=== PATIENT | female | born 1940 | race Caucasian/White ===

== ENCOUNTER 2021-12-26 11:20 | Inpatient (IN) | payer OTHER, MEDICAID ==
[~2021-12-26] VITALS: Ht 170.2 cm; Wt 126.6 kg
[2021-12-26 11:26] VITALS: BP_SYST 151
[2021-12-26 12:06] LABS: BASOPHILS % (AUTO) 0.7 % (0.0-2.0); EOSINOPHILS # (AUTO) 0.1 K/uL (0.0-0.4); EOSINOPHILS % (AUTO) 0.9 % (0.0-4.0); HEMATOCRIT 42.6 % (36-48); HEMOGLOBIN 14.4 g/dL (12.0-16.0); LYMPHOCYTES # (AUTO) 0.9 K/uL (1.0-5.5); LYMPHOCYTES % (AUTO) 13.7 % (20.5-51.5); MEAN CORPUSCULAR HEMOGLOBIN 32 pg (27-31); MEAN CORPUSCULAR HGB CONC 34 % (32-36); MEAN CORPUSCULAR VOLUME 93 fL (79.0-98.0); MONOCYTES # (AUTO) 0.7 K/uL (0.0-1.0); MONOCYTES % (AUTO) 11.4 % (1.7-9.3); NEUTROPHILS # (AUTO) 4.8 K/uL (1.8-7.7); NEUTROPHILS % (AUTO) 73.3 % (40.0-70.0); PLATELET COUNT (AUTO) 152 K/uL (130-430); RED BLOOD CELL COUNT(AUTO) 4.58 MIL/uL (4.2-6.2); RED CELL DISTRIBUTION WIDTH 15.7 % (9.0-15.0); WHITE BLOOD COUNT (AUTO) 6.5 K/uL (4.8-10.8)
[2021-12-26 12:27] LABS: CHLORIDE 102 mmol/L (98-107); POTASSIUM 3.6 mmol/L (3.5-5.1); SODIUM SERUM 140 mmol/L (136-145)
[2021-12-26 12:37] LABS: ALANINE AMINOTRANSFERASE 15 U/L (12-78); ALBUMIN 2.7 g/dL (3.4-4.8); ANION GAP 5 (5-15); ASPARTATE AMINOTRANSFERASE 22 U/L (10-37); CALCIUM 8.9 mg/dL (8.4-11.0); CREATININE 0.76 mg/dL (0.55-1.30); GLUCOSE 151 mg/dL (70-99); TOTAL BILIRUBIN 0.3 mg/dL (0.0-1.0); UREA NITROGEN, BLOOD 19 mg/dL (8-21)
[2021-12-26] MEDS ORDERED: ACET-73 PO (13:28)
[2021-12-26] MEDS ORDERED: DEPS125 PO (13:28)
[2021-12-26] MEDS ORDERED: LEVE1000 PO (13:28)
[2021-12-26] MEDS ORDERED: SENN8.6T19 PO (13:28)
[2021-12-26] MEDS ORDERED: TOP25 PO (13:28)
[2021-12-26] MEDS ORDERED: FURO-150 PO (13:28)
[2021-12-26] MEDS ORDERED: methylPREDNISolone SOD SUCC/PF 62.5 MG/ML VIAL IVP ONE (13:45)
[2021-12-26] MEDS ORDERED: IPRATROPIUM/ALBUTEROL SULFATE 3 ML AMPUL.NEB (DUONEB) INH ONE (13:45)
[2021-12-26 14:11] LABS: BILIRUBIN,URINE NEGATIVE (NEGATIVE); BLOOD, URINE 3+ (NEGATIVE); CLARITY/URINE CLEAR (CLEAR); COLOR,URINE YELLOW (YELLOW); GLUCOSE,URINE NEGATIVE (NEGATIVE); KETONES,URINE TRACE (NEGATIVE); LEUKOCYTE ESTERASE ,URINE NEGATIVE (NEGATIVE); NITRITE, URINE NEGATIVE (NEGATIVE); PH,URINE 5.5 (5.0-8.0); PROTEIN URINE NEGATIVE (NEGATIVE); UROBILINOGEN,URINE 0.2 (0.2-1.0)
[2021-12-26 14:32] LABS: BACTERIA,URINE RARE /HPF (None Seen); RBC,URINE 20-50 /HPF (0-3); WBC,URINE 0-3 /HPF (0-3)
[2021-12-26] MEDS ORDERED: IPRATROPIUM BROM 0.5 MG/2.5 ML VIAL.NEB (ATROVENT) INH PRN (15:30)
[2021-12-26 20:00] VITALS: BP_SYST 148
[2021-12-26] MEDS ORDERED: ALBUTEROL MDI INHALATION 8 GM INH INH PRN (20:45)
[2021-12-26] MEDS ORDERED: ACETAMINOPHEN 500 MG TABLET PO PRN (20:45)
[2021-12-26 20:46] VITALS: BP_SYST 148
[2021-12-26] MEDS: methylPREDNISolone SOD SUCC/PF 62.5 MG/ML VIAL IVP SCH (21:01)
[2021-12-26] MEDS ORDERED: AZITHROMYCIN 500 MG/VIAL (ZITHROMAX) IV ONE (22:04)
[2021-12-26] MEDS: AZITHROMYCIN 500 MG in NS 250 ML IV SCH (22:19)
[2021-12-27 01:29] VITALS: BP_SYST 154
[2021-12-27] MEDS ORDERED: cefTRIAXone 1 GM VIAL ONE (05:31)
[2021-12-27] MEDS: methylPREDNISolone SOD SUCC/PF 62.5 MG/ML VIAL IVP SCH ×3 (07:01→21:44)
[2021-12-27] MEDS: cefTRIAXone 1 GM in D5W 50 ML IV SCH (07:02)
[2021-12-27 07:52] LABS: BASOPHILS % (AUTO) 0.3 % (0.0-2.0); HEMOGLOBIN 13.2 g/dL (12.0-16.0); LYMPHOCYTES # (AUTO) 0.7 K/uL (1.0-5.5); LYMPHOCYTES % (AUTO) 10.4 % (20.5-51.5); MEAN CORPUSCULAR HEMOGLOBIN 31 pg (27-31); MEAN CORPUSCULAR HGB CONC 34 % (32-36); MEAN CORPUSCULAR VOLUME 93 fL (79.0-98.0); MONOCYTES # (AUTO) 0.2 K/uL (0.0-1.0); NEUTROPHILS # (AUTO) 5.9 K/uL (1.8-7.7); NEUTROPHILS % (AUTO) 86.3 % (40.0-70.0); PLATELET COUNT (AUTO) 145 K/uL (130-430); RED BLOOD CELL COUNT(AUTO) 4.22 MIL/uL (4.2-6.2); RED CELL DISTRIBUTION WIDTH 15.4 % (9.0-15.0); WHITE BLOOD COUNT (AUTO) 6.8 K/uL (4.8-10.8)
[2021-12-27 07:54] LABS: ALANINE AMINOTRANSFERASE 13 U/L (12-78); ALBUMIN 2.4 g/dL (3.4-4.8); ASPARTATE AMINOTRANSFERASE 14 U/L (10-37); CALCIUM 8.8 mg/dL (8.4-11.0); CHLORIDE 104 mmol/L (98-107); CREATININE 0.64 mg/dL (0.55-1.30); GLUCOSE 161 mg/dL (70-99); POTASSIUM 4.4 mmol/L (3.5-5.1); SODIUM SERUM 141 mmol/L (136-145); TOTAL BILIRUBIN 0.2 mg/dL (0.0-1.0); UREA NITROGEN, BLOOD 24 mg/dL (8-21)
[2021-12-27 08:00] VITALS: BP_SYST 138
[2021-12-27 08:05] LABS: ANION GAP < 3 (5-15)
[2021-12-27] MEDS: VITAMIN B COMPLEX WITH C TAB/CAP PO SCH (08:47)
[2021-12-27] MEDS: FUROSEMIDE 20 MG TABLET PO SCH (08:47)
[2021-12-27] MEDS: PANTOPRAZOLE SODIUM 40 MG/VIAL (PROTONIX) IVP SCH (08:47)
[2021-12-27] MEDS: DIVALPROEX SODIUM 125 MG CAP.(DEPAKOTE SPRINKLE) PO SCH ×2 (08:48→21:00)
[2021-12-27] MEDS: levETIRAcetam 500 MG TABLET PO SCH ×2 (08:48→21:45)
[2021-12-27] MEDS: TOPIRAMATE 25 MG TABLET(TOPAMAX) PO SCH (08:48)
[2021-12-27 12:00] VITALS: BP_SYST 135
[2021-12-27 16:00] VITALS: BP_SYST 128
[2021-12-27 20:05] VITALS: BP_SYST 138
[2021-12-27 20:26] VITALS: BP_SYST 138
[2021-12-27] MEDS ORDERED: DIVALPROEX SODIUM 125 MG CAP.(DEPAKOTE SPRINKLE) ONE (21:37)
[2021-12-27] MEDS: AZITHROMYCIN 500 MG in NS 250 ML IV SCH (21:44)
[2021-12-28] VITALS: BP_SYST 141
[2021-12-28] MEDS: methylPREDNISolone SOD SUCC/PF 62.5 MG/ML VIAL IVP SCH ×3 (06:20→21:39)
[2021-12-28 08:00] VITALS: BP_SYST 135
[2021-12-28] MEDS: PANTOPRAZOLE SODIUM 40 MG/VIAL (PROTONIX) IVP SCH (08:30)
[2021-12-28] MEDS: TOPIRAMATE 25 MG TABLET(TOPAMAX) PO SCH (08:31)
[2021-12-28] MEDS: VITAMIN B COMPLEX WITH C TAB/CAP PO SCH (08:31)
[2021-12-28] MEDS: FUROSEMIDE 20 MG TABLET PO SCH (08:31)
[2021-12-28] MEDS: levETIRAcetam 500 MG TABLET PO SCH ×2 (08:31→21:01)
[2021-12-28] MEDS: DIVALPROEX SODIUM 125 MG CAP.(DEPAKOTE SPRINKLE) PO SCH ×2 (08:43→21:19)
[2021-12-28] MEDS: cefTRIAXone 1 GM in D5W 50 ML IV SCH ×2 (11:09→21:00)
[2021-12-28 12:04] VITALS: BP_SYST 157
[2021-12-28 16:18] VITALS: BP_SYST 118
[2021-12-28 19:00] VITALS: BP_SYST 134
[2021-12-28 20:00] VITALS: BP_SYST 132
[2021-12-28] MEDS: AZITHROMYCIN 500 MG in NS 250 ML IV SCH (20:59)
[2021-12-29] VITALS (7 sets, daily range): BP systolic 126–151
[2021-12-29] MEDS: methylPREDNISolone SOD SUCC/PF 62.5 MG/ML VIAL IVP SCH ×3 (05:46→20:22)
[2021-12-29 08:41] LABS: BASOPHILS % (AUTO) 0.2 % (0.0-2.0); HEMATOCRIT 38.4 % (36-48); LYMPHOCYTES # (AUTO) 0.6 K/uL (1.0-5.5); LYMPHOCYTES % (AUTO) 10.4 % (20.5-51.5); MEAN CORPUSCULAR HEMOGLOBIN 31 pg (27-31); MEAN CORPUSCULAR HGB CONC 34 % (32-36); MEAN CORPUSCULAR VOLUME 93 fL (79.0-98.0); MONOCYTES # (AUTO) 0.3 K/uL (0.0-1.0); MONOCYTES % (AUTO) 5.9 % (1.7-9.3); NEUTROPHILS # (AUTO) 4.8 K/uL (1.8-7.7); NEUTROPHILS % (AUTO) 83.5 % (40.0-70.0); PLATELET COUNT (AUTO) 168 K/uL (130-430); RED BLOOD CELL COUNT(AUTO) 4.15 MIL/uL (4.2-6.2); RED CELL DISTRIBUTION WIDTH 15.2 % (9.0-15.0); WHITE BLOOD COUNT (AUTO) 5.8 K/uL (4.8-10.8)
[2021-12-29] MEDS: FUROSEMIDE 20 MG TABLET PO SCH (08:48)
[2021-12-29] MEDS: VITAMIN B COMPLEX WITH C TAB/CAP PO SCH (08:48)
[2021-12-29] MEDS: levETIRAcetam 500 MG TABLET PO SCH ×2 (08:49→20:21)
[2021-12-29] MEDS: TOPIRAMATE 25 MG TABLET(TOPAMAX) PO SCH (08:49)
[2021-12-29] MEDS: PANTOPRAZOLE SODIUM 40 MG/VIAL (PROTONIX) IVP SCH (08:49)
[2021-12-29] MEDS: DIVALPROEX SODIUM 125 MG CAP.(DEPAKOTE SPRINKLE) PO SCH ×2 (08:49→20:21)
[2021-12-29 10:11] LABS: ALANINE AMINOTRANSFERASE 15 U/L (12-78); ALBUMIN 2.3 g/dL (3.4-4.8); ANION GAP 6 (5-15); ASPARTATE AMINOTRANSFERASE 21 U/L (10-37); CALCIUM 8.4 mg/dL (8.4-11.0); CHLORIDE 100 mmol/L (98-107); CREATININE 0.55 mg/dL (0.55-1.30); GLUCOSE 148 mg/dL (70-99); POTASSIUM 4.6 mmol/L (3.5-5.1); SODIUM SERUM 138 mmol/L (136-145); TOTAL BILIRUBIN 0.2 mg/dL (0.0-1.0); UREA NITROGEN, BLOOD 37 mg/dL (8-21)
[2021-12-29] MEDS: AZITHROMYCIN 500 MG in NS 250 ML IV SCH (20:23)
[2021-12-30 00:47] VITALS: BP_SYST 145
[2021-12-30] MEDS ORDERED: VANCOMYCIN HCL 1 GM/NS PREMIX 250 ML IV ONE (04:30)
[2021-12-30] MEDS ORDERED: VANCOMYCIN HCL 1000 MG/VIAL IV ONE (06:18)
[2021-12-30] MEDS: methylPREDNISolone SOD SUCC/PF 62.5 MG/ML VIAL IVP SCH (06:26)
[2021-12-30 08:00] VITALS: BP_SYST 119
[2021-12-30] MEDS: DIVALPROEX SODIUM 125 MG CAP.(DEPAKOTE SPRINKLE) PO SCH ×2 (08:36→22:50)
[2021-12-30] MEDS: PANTOPRAZOLE SODIUM 40 MG/VIAL (PROTONIX) IVP SCH (08:37)
[2021-12-30] MEDS: TOPIRAMATE 25 MG TABLET(TOPAMAX) PO SCH (08:37)
[2021-12-30] MEDS: levETIRAcetam 500 MG TABLET PO SCH ×2 (08:37→22:49)
[2021-12-30] MEDS: VITAMIN B COMPLEX WITH C TAB/CAP PO SCH (08:38)
[2021-12-30] MEDS: FUROSEMIDE 20 MG TABLET PO SCH (08:38)
[2021-12-30] MEDS: cefTRIAXone 1 GM in D5W 50 ML IV SCH (08:40)
[2021-12-30 12:00] VITALS: BP_SYST 147
[2021-12-30] MEDS: METHYLPREDNISOLONE SOD SUCC 40 MG/ML VIAL IVP SCH ×2 (15:00→22:52)
[2021-12-30] MEDS: VANCOMYCIN HCL 1,000 MG in NS 250 ML IV SCH ×2 (15:00→22:55)
[2021-12-30 16:53] VITALS: BP_SYST 140
[2021-12-30 20:00] VITALS: BP_SYST 154
[2021-12-30] MEDS: AZITHROMYCIN 500 MG in NS 250 ML IV SCH (22:53)
[2021-12-31] VITALS: BP_SYST 154
[2021-12-31 07:22] LABS: BASOPHILS % (AUTO) 0.4 % (0.0-2.0); EOSINOPHILS % (AUTO) 0.1 % (0.0-4.0); HEMATOCRIT 37.2 % (36-48); HEMOGLOBIN 12.6 g/dL (12.0-16.0); LYMPHOCYTES # (AUTO) 0.8 K/uL (1.0-5.5); LYMPHOCYTES % (AUTO) 19.4 % (20.5-51.5); MEAN CORPUSCULAR HEMOGLOBIN 31 pg (27-31); MEAN CORPUSCULAR HGB CONC 34 % (32-36); MEAN CORPUSCULAR VOLUME 92 fL (79.0-98.0); MONOCYTES # (AUTO) 0.3 K/uL (0.0-1.0); MONOCYTES % (AUTO) 7.7 % (1.7-9.3); NEUTROPHILS # (AUTO) 2.8 K/uL (1.8-7.7); NEUTROPHILS % (AUTO) 72.4 % (40.0-70.0); PLATELET COUNT (AUTO) 172 K/uL (130-430); RED BLOOD CELL COUNT(AUTO) 4.04 MIL/uL (4.2-6.2); RED CELL DISTRIBUTION WIDTH 15.1 % (9.0-15.0); WHITE BLOOD COUNT (AUTO) 3.9 K/uL (4.8-10.8)
[2021-12-31 08:00] VITALS: BP_SYST 168
[2021-12-31] MEDS: VANCOMYCIN HCL 1,000 MG in NS 250 ML IV SCH ×3 (08:10→20:40)
[2021-12-31] MEDS: METHYLPREDNISOLONE SOD SUCC 40 MG/ML VIAL IVP SCH ×3 (08:11→20:41)
[2021-12-31] MEDS: DIVALPROEX SODIUM 125 MG CAP.(DEPAKOTE SPRINKLE) PO SCH ×2 (08:48→20:40)
[2021-12-31] MEDS: TOPIRAMATE 25 MG TABLET(TOPAMAX) PO SCH (08:48)
[2021-12-31] MEDS: PANTOPRAZOLE SODIUM 40 MG/VIAL (PROTONIX) IVP SCH (08:48)
[2021-12-31] MEDS: FUROSEMIDE 20 MG TABLET PO SCH (08:49)
[2021-12-31] MEDS: levETIRAcetam 500 MG TABLET PO SCH ×2 (08:49→20:39)
[2021-12-31] MEDS: VITAMIN B COMPLEX WITH C TAB/CAP PO SCH (08:50)
[2021-12-31] MEDS: cefTRIAXone 1 GM in D5W 50 ML IV SCH (10:10)
[2021-12-31 12:00] VITALS: BP_SYST 148
[2021-12-31 16:00] VITALS: BP_SYST 142
[2021-12-31 20:00] VITALS: BP_SYST 125
[2022-01-01] VITALS: BP_SYST 132
[2022-01-01 04:00] VITALS: BP_SYST 124
[2022-01-01] MEDS: METHYLPREDNISOLONE SOD SUCC 40 MG/ML VIAL IVP SCH ×3 (05:11→22:59)
[2022-01-01] MEDS: VANCOMYCIN HCL 1,000 MG in NS 250 ML IV SCH ×3 (05:12→22:58)
[2022-01-01 08:00] VITALS: BP_SYST 156
[2022-01-01 08:47] LABS: BASOPHILS % (AUTO) 0.2 % (0.0-2.0); HEMATOCRIT 38.5 % (36-48); HEMOGLOBIN 13.2 g/dL (12.0-16.0); LYMPHOCYTES # (AUTO) 0.9 K/uL (1.0-5.5); LYMPHOCYTES % (AUTO) 16.9 % (20.5-51.5); MEAN CORPUSCULAR HEMOGLOBIN 31 pg (27-31); MEAN CORPUSCULAR HGB CONC 34 % (32-36); MEAN CORPUSCULAR VOLUME 91 fL (79.0-98.0); MONOCYTES # (AUTO) 0.2 K/uL (0.0-1.0); MONOCYTES % (AUTO) 3.6 % (1.7-9.3); NEUTROPHILS # (AUTO) 4.1 K/uL (1.8-7.7); PLATELET COUNT (AUTO) 187 K/uL (130-430); RED BLOOD CELL COUNT(AUTO) 4.23 MIL/uL (4.2-6.2); RED CELL DISTRIBUTION WIDTH 14.8 % (9.0-15.0); WHITE BLOOD COUNT (AUTO) 5.2 K/uL (4.8-10.8)
[2022-01-01 09:37] LABS: ANION GAP 4 (5-15); CALCIUM 8.2 mg/dL (8.4-11.0); CHLORIDE 101 mmol/L (98-107); CREATININE 0.65 mg/dL (0.55-1.30); GLUCOSE 144 mg/dL (70-99); POTASSIUM 4.5 mmol/L (3.5-5.1); SODIUM SERUM 142 mmol/L (136-145); UREA NITROGEN, BLOOD 28 mg/dL (8-21)
[2022-01-01] MEDS: TOPIRAMATE 25 MG TABLET(TOPAMAX) PO SCH (09:40)
[2022-01-01] MEDS: FUROSEMIDE 20 MG TABLET PO SCH (09:41)
[2022-01-01] MEDS: levETIRAcetam 500 MG TABLET PO SCH ×2 (09:42→23:00)
[2022-01-01] MEDS: DIVALPROEX SODIUM 125 MG CAP.(DEPAKOTE SPRINKLE) PO SCH ×2 (09:43→22:59)
[2022-01-01] MEDS: VITAMIN B COMPLEX WITH C TAB/CAP PO SCH (09:44)
[2022-01-01 12:00] VITALS: BP_SYST 148
[2022-01-01] MEDS: PANTOPRAZOLE SODIUM 40 MG/VIAL (PROTONIX) IVP SCH (12:33)
[2022-01-01] MEDS: cefTRIAXone 1 GM in D5W 50 ML IV SCH (12:33)
[2022-01-01 14:26] LABS: NEUTROPHILS % (AUTO) 79.3 % (40.0-70.0)
[2022-01-01 16:00] VITALS: BP_SYST 150
[2022-01-01 20:00] VITALS: BP_SYST 115
[2022-01-02] VITALS: BP_SYST 159
[2022-01-02 04:00] VITALS: BP_SYST 133
[2022-01-02] MEDS: VANCOMYCIN HCL 1,000 MG in NS 250 ML IV SCH (07:38)
[2022-01-02] MEDS: PANTOPRAZOLE SODIUM 40 MG/VIAL (PROTONIX) IVP SCH (08:51)
[2022-01-02] MEDS: levETIRAcetam 500 MG TABLET PO SCH ×2 (08:52→21:42)
[2022-01-02] MEDS: METHYLPREDNISOLONE SOD SUCC 40 MG/ML VIAL IVP SCH ×2 (08:52→21:42)
[2022-01-02] MEDS: TOPIRAMATE 25 MG TABLET(TOPAMAX) PO SCH (08:53)
[2022-01-02] MEDS: VITAMIN B COMPLEX WITH C TAB/CAP PO SCH (08:54)
[2022-01-02] MEDS: FUROSEMIDE 20 MG TABLET PO SCH (08:54)
[2022-01-02] MEDS: DIVALPROEX SODIUM 125 MG CAP.(DEPAKOTE SPRINKLE) PO SCH ×2 (08:55→21:42)
[2022-01-02] MEDS: cefTRIAXone 1 GM in D5W 50 ML IV SCH (08:56)
[2022-01-02 09:50] LABS: ALANINE AMINOTRANSFERASE 17 U/L (12-78); ALBUMIN 2.2 g/dL (3.4-4.8); ANION GAP 5 (5-15); ASPARTATE AMINOTRANSFERASE 9 U/L (10-37); CALCIUM 8.2 mg/dL (8.4-11.0); CHLORIDE 101 mmol/L (98-107); CREATININE 0.75 mg/dL (0.55-1.30); GLUCOSE 154 mg/dL (70-99); POTASSIUM 4.1 mmol/L (3.5-5.1); SODIUM SERUM 141 mmol/L (136-145); TOTAL BILIRUBIN 0.2 mg/dL (0.0-1.0); UREA NITROGEN, BLOOD 37 mg/dL (8-21)
[2022-01-02 20:00] VITALS: BP_SYST 138
[2022-01-03 02:21] VITALS: BP_SYST 108
[2022-01-03 08:12] LABS: CREATININE 0.63 mg/dL (0.55-1.30); VANCOMYCIN,RANDOM 35.5 ug/mL
[2022-01-03] MEDS: VITAMIN B COMPLEX WITH C TAB/CAP PO SCH (09:17)
[2022-01-03] MEDS: TOPIRAMATE 25 MG TABLET(TOPAMAX) PO SCH (09:17)
[2022-01-03] MEDS: levETIRAcetam 500 MG TABLET PO SCH ×2 (09:17→21:43)
[2022-01-03] MEDS: PANTOPRAZOLE SODIUM 40 MG/VIAL (PROTONIX) IVP SCH (09:18)
[2022-01-03] MEDS: DIVALPROEX SODIUM 125 MG CAP.(DEPAKOTE SPRINKLE) PO SCH ×2 (09:18→21:43)
[2022-01-03] MEDS: METHYLPREDNISOLONE SOD SUCC 40 MG/ML VIAL IVP SCH (09:18)
[2022-01-03] MEDS: cefTRIAXone 1 GM in D5W 50 ML IV SCH (09:18)
[2022-01-03] MEDS: FUROSEMIDE 20 MG TABLET PO SCH (09:19)
[2022-01-03 14:01] VITALS: BP_SYST 109
[2022-01-03 16:26] VITALS: BP_SYST 115
[2022-01-03] MEDS ORDERED: predniSONE 20 MG TABLET PO ONE (17:00)
[2022-01-04] VITALS (7 sets, daily range): BP systolic 118–155
[2022-01-04] MEDS: DIVALPROEX SODIUM 125 MG CAP.(DEPAKOTE SPRINKLE) PO SCH (08:21)
[2022-01-04] MEDS: FUROSEMIDE 20 MG TABLET PO SCH (08:21)
[2022-01-04] MEDS: VITAMIN B COMPLEX WITH C TAB/CAP PO SCH (08:22)
[2022-01-04] MEDS: TOPIRAMATE 25 MG TABLET(TOPAMAX) PO SCH (08:22)
[2022-01-04] MEDS: levETIRAcetam 500 MG TABLET PO SCH (08:22)
[2022-01-04] MEDS ORDERED: predniSONE 10 MG TABLET PO ONE (09:00)
[2022-01-04] MEDS: PANTOPRAZOLE SODIUM 40 MG/VIAL (PROTONIX) IVP SCH (09:15)
[2022-01-04] MEDS: cefTRIAXone 1 GM in D5W 50 ML IV SCH (09:15)
[2022-01-05] MEDS ORDERED: predniSONE 20 MG TABLET PO ONE (09:00)
[2022-01-06] MEDS ORDERED: predniSONE 10 MG TABLET PO ONE (09:00)
[2022-01-07] MEDS ORDERED: predniSONE 5 MG TABLET PO SCH (09:00)
== END 2022-01-04 18:44 | DRG 177 ==
LOC: SED 11:20 → STU 15:24
PROVIDERS: ADMIT Internal Medicine; ATTEND Internal Medicine
PROC: 5A09357 Assistance with Respiratory Ventilation, Less than 24 Consecutive Hours, Continuous Positive Airway Pressure (ICD-10-PCS; principal; 2021-12-26)
PROC: 5A09357 Assistance with Respiratory Ventilation, Less than 24 Consecutive Hours, Continuous Positive Airway Pressure (ICD-10-PCS; 2021-12-27)
PROC: 05HY33Z Insertion of Infusion Device into Upper Vein, Percutaneous Approach (ICD-10-PCS; 2022-01-01)
PROC: B54MZZA Ultrasonography of Right Upper Extremity Veins, Guidance (ICD-10-PCS; 2022-01-01)
DX: U07.1 COVID-19 (principal); E43 Unspecified severe protein-calorie malnutrition; I50.41 Acute combined systolic (congestive) and diastolic (congestive) heart failure; J12.82 Pneumonia due to coronavirus disease 2019; J96.00 Acute respiratory failure, unspecified whether with hypoxia or hypercapnia; J44.1 Chronic obstructive pulmonary disease with (acute) exacerbation; R78.81 Bacteremia; E87.2 Acidosis; J44.0 Chronic obstructive pulmonary disease with (acute) lower respiratory infection; Z68.41 Body mass index [BMI] 40.0-44.9, adult; I11.0 Hypertensive heart disease with heart failure; E11.9 Type 2 diabetes mellitus without complications; G20 Parkinson's disease; F02.80 Dementia in other diseases classified elsewhere, unspecified severity, without behavioral disturbance, psychotic disturbance, mood disturbance, and anxiety; B95.8 Unspecified staphylococcus as the cause of diseases classified elsewhere; E55.9 Vitamin D deficiency, unspecified; E78.5 Hyperlipidemia, unspecified; E66.9 Obesity, unspecified; F20.9 Schizophrenia, unspecified; F31.9 Bipolar disorder, unspecified; F41.9 Anxiety disorder, unspecified; G40.909 Epilepsy, unspecified, not intractable, without status epilepticus; G47.33 Obstructive sleep apnea (adult) (pediatric); I48.91 Unspecified atrial fibrillation; Z79.899 Other long term (current) drug therapy; Z88.2 Allergy status to sulfonamides
CPT/HCPCS: 36415; 36600; 71045; 80048; 80053; 80202; 81000; 82565; 82803-TC; 82962; 83605; 83880; 84484; 85025; 86140; 87040; 87081; 87186-TC; 93005; 93306; 94660; 96374; 99291; C9113; G0378; J0456; J0696; J1030; J2930; J3370; J7050; J7060; J7512